=== PATIENT | female | born 1980 | race Caucasian/White ===

== ENCOUNTER 2018-06-03 09:44 | Emergency (ER) | payer BC ==
[2018-06-03] MEDS ORDERED: Al Hydrox/Mg Hydrox/Simet LIQ* 30 ML UDC PO ONE (11:38)
[2018-06-03] MEDS ORDERED: Lidocaine 2% VISCOUS* 15 ML UDC PO ONE (11:40)
--- NOTE | 2018-06-03 11:51 | UC ---
Abdominal Pain Female HPI - HPI Summary HPI Summary: 38 year old with epigastric pain for 3 days. Last night pain was intense, bending her over. Pain is cramping and radiates around lower ribs and up into neck. Was started on Tamiflu 3 days ago for tested and diagnosed influenza. Pain was there before started Tamiflu but less. In [facility], pain 4/10 and well tolerated. Hx of heartburn but no ulcers. No CV hx although Cv hx in family. Patient has had decreased bowel movements this week. VSS; pulse ox 100. - History of Current Complaint Chief Complaint: UCAbdominalPain Stated Complaint: ABDOMINAL PAIN Time Seen by Provider: 06/03/18 11:19 Hx Last Menstrual Period: 06/02/18 Pain Intensity: 5 Allergies/Adverse Reactions: Allergies Allergy/AdvReac Type Severity Reaction Status Date / Time No Known Allergies Allergy Verified 06/03/18 09:51 Home Medications: Home Medications Oseltamivir CAP* [Tamiflu CAP*] 75 mg PO BID 06/03/18 [History Confirmed ] PMH/Surg Hx/FS Hx/Imm Hx - Additional Past Medical History Additional PMH: Non drinker; non smoker. Previously Healthy: Yes - Surgical History Surgical History: Yes Surgery Procedure, Year, and Place: c/sec x 2 - Family History Known Family History: Positive: Cardiac Disease, Other - no ulcers - Social History Alcohol Use: None Substance Use Type: None Smoking Status (MU): Never Smoked Tobacco Have You Smoked in the Last Year: No - Immunization History Most Recent Influenza Vaccination: 02/13/16 Most Recent Tetanus Shot: 12/24/15 Most Recent Pneumonia Vaccination: never Review of Systems All Other Systems Reviewed And Are Negative: Yes Constitutional: Positive: Negative Skin: Positive: Negative Eyes: Positive: Negative ENT: Positive: Negative Respiratory: Positive: Negative Cardiovascular: Positive: Negative Gastrointestinal: Positive: Abdominal Pain - 2-4/10 epigastrium; cramping not burning, Other - no hx of pancreatitis Genitourinary: Positive: Negative Motor: Positive: Negative Neurovascular: Positive: Negative Musculoskeletal: Positive: Negative Neurological: Positive: Negative Psychological: Positive: Negative Is Patient Immunocompromised?: No Physical Exam Triage Information Reviewed: Yes Appearance: Well-Appearing, Pain Distress - minimal; walks, jumps, smiles; no significant pain at present Vital Signs: Initial Vital Signs Temp 97.8 F 06/03/18 09:48 Pulse 84 06/03/18 09:48 Resp 16 06/03/18 09:48 BP 109/72 06/03/18 09:48 Pulse Ox 100 06/03/18 09:48 Vital Signs Reviewed: Yes Eye Exam: Normal ENT Exam: Normal Dental Exam: Normal Neck exam: Normal Neck: Positive: 1 Respiratory Exam: Normal Respiratory: Positive: Chest non-tender, Lungs clear, Normal breath sounds Cardiovascular Exam: Normal Cardiovascular: Positive: RRR, No Murmur, Pulses Normal Abdominal Exam: Normal Abdomen Description: Positive: Nontender - slight feeling of "gas" on palpation of epigastrium, No Organomegaly, Soft. Negative: CVA Tenderness (R), CVA Tenderness (L), Distended, Guarding, Hepatomegaly, McBurney's Point Tenderness, Peritoneal Signs, Pulsatile Mass, Splenomegaly Bowel Sounds: Positive: Present Musculoskeletal Exam: Normal Neurological Exam: Normal Psychological Exam: Normal Skin Exam: Normal Abd Pain Female Course/Dx - Course Course Of Treatment: 38 year old with epigastric pain for 3 days. Last night pain was intense, bending her over. Pain is cramping and radiates around lower ribs and up into neck. Was started on Tamiflu 3 days ago for tested and diagnosed influenza. Pain was there before started Tamiflu but less. In [facility], pain 4/10 and well tolerated. Hx of heartburn but no ulcers. No CV hx although Cv hx in family. VSS; pulse ox 100. x ray: NONOBSTRUCTIVE BOWEL GAS PATTERN. LARGE AMOUNT OF STOOL WITHIN THE COLON. CXR: normal. Patient reexamined prior to departure. Mild discomfort. My dx is constipation although I did discuss with patient other causes of epigastric pain. Patient know to go to ED for increased or new pain. Gastritis is possible as is pancreatitis. No free air noted on x ray. Patient will add fluids, fiber, and Colace and Miralax, as necessary. She will follow up in two days. - Differential Dx/Diagnosis Provider Diagnosis: Constipation Discharge - Sign-Out/Discharge Documenting (check all that apply): Patient Departure All imaging exams completed and their final reports reviewed: Yes - Discharge Plan Condition: Stable Disposition: HOME Patient Education Materials: Constipation (DC), High Fiber Diet (ED) Referrals: Awa Adames MD [Primary Care Provider] - Additional Instructions: WE DISCUSSED: My diagnosis is constipation, see attached information. [facility] (to soften the stool). However, if your pain doesn't get better with treatment or if you develop more pain or fever, you will need to go to the emergency department. Treatment: 1. increase fluids and add a little prune juice 2. increase fiber with metamucil or other fiber creating over the counter medication 3. Stool softener: Take it twice a day for the next 10 days. 4. Miralax to clear your bowel. I have given you a prescription. Other possible problems have been addressed. You have no evidence of ruptured ulcer. You may have GERD and can take ranitidine for it. Your condition should improve over the next 2 days. Call your doctor on Tuesday if you are not getting better. Go to ED for new, increased or continuing pain or new symptoms. Call us with any questions or concerns. - Billing Disposition and Condition Condition: STABLE Disposition: Home
[2018-06-03 12:03] VITALS: BP 111/67
== END 2018-06-03 12:58 | disposition home or self-care (01) ==
LOC: UCEAST 09:44
DX: K59.00 Constipation, unspecified (principal)
CPT/HCPCS: 71046; 74019; 99211; A9270-GY; G0463